=== PATIENT | female | born 1950 | race Caucasian/White ===

== ENCOUNTER → 2017-02-27 | Outpatient (CLI) | payer OTHER, MEDICARE | LOC: RAD 01:14 | DX: Z12.31 Encounter for screening mammogram for malignant neoplasm of breast (principal) ==

== ENCOUNTER → 2018-03-05 | Outpatient (CLI) | payer OTHER, MEDICARE | LOC: RAD 00:22 | DX: Z12.31 Encounter for screening mammogram for malignant neoplasm of breast (principal) ==

== ENCOUNTER → 2019-07-05 | Outpatient (CLI) | payer OTHER | LOC: RAD 13:14 | DX: Z12.31 Encounter for screening mammogram for malignant neoplasm of breast (principal) ==

== ENCOUNTER → 2020-11-13 | Outpatient (CLI) | payer OTHER | LOC: BC 09:59 | PROVIDERS: ATTEND Internal Medicine | DX: Z12.31 Encounter for screening mammogram for malignant neoplasm of breast (principal) ==

== ENCOUNTER → 2021-02-20 | Outpatient (CLI) | payer OTHER ==
[~2021-02-20] MED LIST: BENICAR HCT 201 EACH PO; BREO ELLIPTA 11 EACH INH; BUPROPION XL300 MG PO; CELEXA 10 MG TA10 M1 PO; FLONASE 0.05%50 MCG NASAL; LIPITOR40 MG PO; MELOXICAM15 MG PO; OMEPRAZOLE 20 M20 M1 PO; SINGULAIR 10 MG10 MG PO; SYMBICORT80 MCG/4.1 INH; TYLENOL325 MG PO; XANAX 0.5 MG0.5 MG PO; XYZAL5 MG PO
== END ==
LOC: LAB 06:18
PROVIDERS: ATTEND Student in an Organized Health Care Education/Training Program
DX: Z01.812 Encounter for preprocedural laboratory examination (principal); Z20.822 Contact with and (suspected) exposure to COVID-19

== ENCOUNTER → 2021-02-22 | Outpatient (CLI) | payer OTHER ==
[~2021-02-22] VITALS: Ht 162.6 cm; Wt 90.7 kg
--- NOTE | 2021-02-27 11:08 | PATH ---
[facility] [address] [place] [address] PATHOLOGY RPT PROCEDURE Name: LEVI ABDULLAHI Room #: REG [facility] Efrain#: [id number] Admission: 02/22/21 Date of : 52 Discharge: Report #: [id number] Path Case #: [id number] [facility] Accession Number: [id number] . 01 Material submitted: . sigmoid colon - SIGMOID COLON POLYP . 01 Clinical history: . COLONOSCOPY REFLUX, HX OF POLYPS . 02 Diagnosis: Colonic mucosa, sigmoid colon polyp, biopsy: - Tubular adenoma. (SCA:pit; 02/25/2021) QTP 02/25/2021 1640 Local . 02 Electronically signed: . Ernie Lopez DO, Pathologist NPI- [id number] . 01 Gross description: . Received in formalin labeled "Levi Abdullahi, sigmoid colon polyp" are multiple pedro-brown soft tissue fragments measuring in aggregate 1.0 x 0.2 x 0.1 cm. The specimen is submitted entirely in A1. ([facility]; 02/24/2021) [facility] 02/24/2021 1017 Local . 02 Pathologist provided ICD-10: D12.5 . 02 CPT . 324765 Specimen Comment: A courtesy copy of this report has been sent to [phone] Specimen Comment: [id number] Specimen Comment: Report sent to / DR AVILA Specimen Comment: A duplicate report has been generated due to demographic updates. Performed at: 01 [facility] [address] [id number] MD Sonido Yoder MD Phone: [phone] Performed at: 02 [facility] [address] [id number] MD Sergei Meza MD Phone: [phone]
--- NOTE | 2021-02-27 16:17 | P ---
[facility] [place] [address] [place] [address] PROCEDURE REPORT Name: LEVI ABDULLAHI Room #: REG MEHRDAD Johnson#: [id number] Admission: 02/22/21 Attend Phys: Saqib Guerrero Discharge: Date of : 52 Report #: [id number] THIS REPORT FOR: cc: Brea Pulliam MD,Saqib Singh MD, MD ~ cc: Brea Pulliam MD DATE OF SERVICE: 02/22/2021 PROCEDURE PERFORMED: Colonoscopy with biopsies. HISTORY OF PRESENT ILLNESS: The patient is a 70-year-old female with a history of colon polyps, here for routine followup. Last colonoscopy was done by a different postal service mail processor with the most recent report I have is in 2013. Diverticulosis was also noted at that time. The patient denies any symptoms other than mild constipation. No family history of colon cancer. DESCRIPTION OF PROCEDURE: The risks and benefits of the procedure were explained to the patient, those risks including but not limited to bleeding, perforation and the risk of sedation. She understood these risks and gave informed consent. Sedation was given using propofol per anesthesia. Next, a digital rectal exam was initially performed, which was normal. Next, using a standard Olympus colonoscope, the scope was placed in the patient's anus and advanced under direct vision to the cecum. The overall prep was excellent. The cecum and ileocecal valve were normal in appearance. Ascending, transverse, descending colon were normal. Multiple diverticula noted in the sigmoid colon. No evidence of inflammation. Also noted were 2 polyps, 4-5 mm in size, both removed with cold forceps. The rectal mucosa was normal. On retroflexion, no abnormalities were noted. The scope was then withdrawn and the procedure terminated. The patient tolerated the procedure well. IMPRESSION: 1. Sigmoid diverticulosis. 2. Two small colon polyps. 3. Otherwise, normal colonoscopy. RECOMMENDATIONS: 1. Await biopsy results. 2. Repeat colonoscopy in [address] [address] PROCEDURE REPORT Name: LEVI ABDULLAHI Room #: [facility] MEHRDAD Zuniga#: [id number] Admission: 02/22/21 Attend Phys: Saqib Guerrero Discharge: Date of : 52 Report #: [id number] Thank you for allowing me to participate in her care. <ELECTRONICALLY SIGNED> By: Saqib Dumont MD 02/27/21 1617 [id number] [id number] Saqib Dumont MD /nt
--- NOTE | 2021-02-27 16:17 | P ---
[facility] [place] [address] [place] [address] PROCEDURE REPORT Name: LEVI ABDULLAHI Room #: REG MEHRDAD Johnson#: [id number] Admission: 02/22/21 Attend Phys: Saqib Guerrero Discharge: Date of : 52 Report #: [id number] THIS REPORT FOR: cc: Brea Pulliam MD,Saqib Singh MD, MD ~ cc: Brea Pulliam MD DATE OF SERVICE: 02/22/2021 PROCEDURE PERFORMED: Upper endoscopy with esophageal dilation. HISTORY OF PRESENT ILLNESS: The patient is a 70-year-old female with a history of gastroesophageal reflux disease, on daily PPI therapy, which in general controls her symptoms quite well. She does report intermittent dysphagia. Plan is for EGD and colonoscopy today. DESCRIPTION OF PROCEDURE: The risks and benefits of the procedure were explained to the patient, those risks including but not limited to bleeding, perforation and the risk of sedation. She understood these risks and gave informed consent. Sedation was given using propofol per anesthesia. Next, using a standard Olympus upper endoscope, the scope was placed in the patient's mouth and advanced under direct vision through the esophagus, stomach and into the second portion of the duodenum. The larynx was normal in appearance. The esophagus was normal throughout. The GE junction was normal. Upon entering the stomach, a small hiatal hernia was noted. Overall, the gastric mucosa was normal. The pylorus was normal and patent. The duodenal bulb, first and second portion were all normal. The scope was then brought back up into the patient's stomach and a Savary guidewire was inserted through the scope, leaving the guidewire in place as the scope was then withdrawn. Next, a 48-Greek Savary dilation of the esophagus was then performed without difficulty. The wire and dilator removed. The scope was reintroduced into the patient's stomach. There was no evidence of mucosal tear after dilation. The scope was then withdrawn and the procedure terminated. The patient tolerated the procedure well. IMPRESSION: 1. Small hiatal hernia. 2. Otherwise, normal upper endoscopy. RECOMMENDATIONS: 1. Continue daily PPI therapy. 2. Observe the patient post-dilation. [facility] [address] [place] [address] PROCEDURE REPORT Name: BRADLYLEVI Room #: [facility]#: [id number] Admission: 02/22/21 Attend Phys: Saqib Guerrero Discharge: Date of : 52 Report #: [id number] Thank you for allowing me to participate in her care. <ELECTRONICALLY SIGNED> By: Saqib Dumont MD 02/27/21 1617 0928 [id number] Saqib Dumont MD /nt
== END | disposition home or self-care (01) ==
LOC: GI 08:18
PROVIDERS: ATTEND Specialist
DX: K59.00 Constipation, unspecified (principal); D12.5 Benign neoplasm of sigmoid colon; K57.30 Diverticulosis of large intestine without perforation or abscess without bleeding; K21.9 Gastro-esophageal reflux disease without esophagitis; R13.10 Dysphagia, unspecified; K44.9 Diaphragmatic hernia without obstruction or gangrene; I10 Essential (primary) hypertension; E78.00 Pure hypercholesterolemia, unspecified; F32.9 Major depressive disorder, single episode, unspecified; F41.9 Anxiety disorder, unspecified; G47.30 Sleep apnea, unspecified; J45.909 Unspecified asthma, uncomplicated; Z98.890 Other specified postprocedural states; Z79.899 Other long term (current) drug therapy; Z96.651 Presence of right artificial knee joint; Z90.710 Acquired absence of both cervix and uterus; Z91.041 Radiographic dye allergy status
CPT/HCPCS: 62110; 62900